=== PATIENT | female | born 1970 | race Hispanic/Latino ===

== ENCOUNTER 2017-12-02 21:10 | Emergency (ER) | payer OTHER ==
[2017-12-02 21:50] LABS: APPEARANCE,URINE Cloudy (CLEAR); BILIRUBIN,URINE Negative (NEGATIVE); COLOR,URINE Yellow (YELLOW); GLUCOSE, URINE (UA) Negative (NEGATIVE); KETONES,URINE Negative (NEGATIVE); LEUKOCYTE ESTERASE ,URINE Small (NEGATIVE); NITRATE,URINE Negative (NEGATIVE); OCCULT BLOOD,URINE Large (NEGATIVE); PROTEIN,URINE Trace (NEGATIVE)
[2017-12-02 21:54] LABS: CREATININE 0.8 mg/dL (0.5-1.5); POTASSIUM 3.9 mmol/L (3.5-5.1)
[2017-12-02 21:56] LABS: BASOPHILS % (AUTO) 0.3 % (0.0-5.0); EOSINOPHILS % (AUTO) 1.8 % (0.0-8.0); HEMATOCRIT 39.3 % (36-48); LYMPHOCYTES % (AUTO) 21.1 % (21.0-51.0); MEAN CORPUSCULAR HEMOGLOBIN 29.1 pg (27.0-33.0); MEAN CORPUSCULAR HGB CONC 34.6 g/dL (32.0-36.0); MONOCYTES % (AUTO) 3.6 % (3.0-13.0); NEUTROPHILS % (AUTO) 73.2 % (40.0-77.0); PLATELET COUNT (AUTO) 342 K/uL (130-400); RED BLOOD CELL COUNT(AUTO) 4.68 MIL/uL (4.00-5.50); RED CELL DISTRIBUTION WIDTH 14.3 % (11.0-15.5)
[2017-12-02 21:58] LABS: ALBUMIN 3.5 g/dL (3.5-5.0); BILIRUBIN,TOTAL 0.4 mg/dL (0.2-1.0); TOTAL PROTEIN, SERUM 7.8 g/dL (6.0-8.3)
[2017-12-02 22:05] LABS: BACTERIA,URINE Moderate /HPF (None Seen); MUCUS,URINE Moderate LPF (None Seen)
[2017-12-02] MEDS ORDERED: ONDANSETRON HCL 4 MG/2 ML VIAL ONE (22:12)
[2017-12-02] MEDS ORDERED: HYOSCYAMINE SULFATE 0.125 MG TAB.SUBL SL ONE (22:12)
[2017-12-02] MEDS ORDERED: MORPHINE SULFATE 2 MG/ML 1ML SYG ONE (22:13)
[2017-12-02] MEDS ORDERED: SUCRALFATE 1 GM TABLET ONE (23:05)
== END 2017-12-02 23:44 | disposition home or self-care (01) ==
LOC: EDH 21:10
DX: K29.00 Acute gastritis without bleeding (principal); M19.90 Unspecified osteoarthritis, unspecified site; E78.5 Hyperlipidemia, unspecified; I10 Essential (primary) hypertension; Z90.49 Acquired absence of other specified parts of digestive tract; Z88.0 Allergy status to penicillin
CPT/HCPCS: 36415; 76705; 80053; 81001; 83690; 85025; 86677; 96374; 96375; 99285; J2405

== ENCOUNTER 2019-04-21 20:46 | Inpatient (IN) | payer OTHER ==
[~2019-04-21] VITALS: Ht 177.8 cm; Wt 105.7 kg
[2019-04-21] MEDS ORDERED: ONDANSETRON HCL 4 MG/2 ML VIAL ONE (22:26)
[2019-04-21] MEDS ORDERED: MORPHINE SULFATE 4 MG/1ML SYG ONE (22:26)
[2019-04-21 22:33] LABS: BASOPHILS % (AUTO) 0.8 % (0.0-5.0); EOSINOPHILS % (AUTO) 1.7 % (0.0-8.0); HEMATOCRIT 41.4 % (36-48); MONOCYTES % (AUTO) 3.2 % (3.0-13.0); NEUTROPHILS % (AUTO) 74.3 % (40.0-77.0); PLATELET COUNT (AUTO) 334 K/uL (130-400); RED BLOOD CELL COUNT(AUTO) 4.87 MIL/uL (4.00-5.50); RED CELL DISTRIBUTION WIDTH 14.2 % (11.0-15.5); WHITE BLOOD COUNT (AUTO) 11.8 K/uL (4.8-10.8)
[2019-04-21 22:44] LABS: CREATININE 0.7 mg/dL (0.5-1.5); POTASSIUM 3.7 mmol/L (3.5-5.1)
[2019-04-21 23:09] LABS: ALBUMIN 3.3 g/dL (3.5-5.0); BILIRUBIN,DIRECT 0.1 mg/dL (0.0-0.3); BILIRUBIN,TOTAL 0.3 mg/dL (0.2-1.0); TOTAL PROTEIN, SERUM 7.1 g/dL (6.0-8.3)
[2019-04-22] MEDS ORDERED: LIDOCAINE HCL 1% 20 ML VIAL ONE (00:08)
[2019-04-22] MEDS ORDERED: VANCOMYCIN 1GM+NS 250ML 500 ML IV ONE (01:16)
[2019-04-22] MEDS ORDERED: ACETAMINOPHEN EXTRA STRENGTH 500 MG TABLET ONE (04:50)
[2019-04-22] MEDS: SODIUM CHLORIDE 0.9% 1000ML 1,000 ML IV SCH ×2 (05:16→18:20)
[2019-04-22] MEDS ORDERED: ACETAMINOPHEN 325 MG TAB PO PRN (05:30)
[2019-04-22] MEDS ORDERED: HYDRALAZINE HCL 20 MG/ML VIAL IV PRN (05:30)
[2019-04-22] MEDS ORDERED: ONDANSETRON HCL 4 MG/2 ML VIAL IV PRN (05:30)
[2019-04-22] MEDS ORDERED: VANCOMYCIN PROTOCOL PER PHARMACY IV PRN (05:30)
[2019-04-22] MEDS ORDERED: SODIUM CHLORIDE 0.9% 1000ML 1,000 ML IV ONE (05:37)
[2019-04-22] MEDS ORDERED: CLINDAMYCIN 300 MG/D5W 50 ML 50 ML IV SCH (05:45)
[2019-04-22] MEDS ORDERED: CLINDAMYCIN 300 MG/D5W 50 ML 50 ML IV ONE (07:14)
[2019-04-22] MEDS: FAMOTIDINE/PF 20 MG/2 ML VIAL IV SCH ×2 (09:00→20:42)
[2019-04-22] MEDS: LEVOFLOXACIN 750 MG/D5W 150 ML 150 ML IV SCH (09:00)
[2019-04-22] MEDS ORDERED: FAMOTIDINE/PF 20 MG/2 ML VIAL IV ONE (10:39)
[2019-04-22] MEDS ORDERED: LEVOFLOXACIN 750 MG/D5W 150 ML 150 ML ONE (10:40)
[2019-04-22] MEDS ORDERED: ONDANSETRON HCL 4 MG/2 ML VIAL ONE (10:51)
[2019-04-22] MEDS ORDERED: MORPHINE SULFATE 2 MG/ML 1ML SYG ONE (10:51)
[2019-04-22 12:00] VITALS: BP 111/64
[2019-04-22] MEDS ORDERED: HYDR12.530 PO ×2 (13:09)
[2019-04-22] MEDS ORDERED: MELO-108 PO (13:09)
[2019-04-22] MEDS ORDERED: ESOM40CA54 PO (13:09)
[2019-04-22] MEDS ORDERED: LOSA50TA64 PO ×2 (13:09)
[2019-04-22] MEDS ORDERED: COMPOUND IV REFRIGERATED 1 EACH IVSOLN MISC PRN (13:15)
[2019-04-22] MEDS: VANCOMYCIN 1.5 GM in SODIUM CHLORIDE 0.9% 250 ML IV SCH (14:12)
--- NOTE | 2019-04-22 15:00 | NUR ---
DR NIRANJAN PAIZ RETURNED CALL AND ORDERERS RECEIVED FOR ultrasound guidance core biopsy / aspiration of left breast by IR, IR procedure request order placed and copy fax to hospitality housekeeper. Patient informed of plan procedures.
[2019-04-22 16:00] VITALS: BP 127/78
[2019-04-22 19:00] VITALS: BP 129/56
[2019-04-22] MEDS: MORPHINE SULFATE 2 MG/ML 1ML SYG IV PRN (20:43)
[2019-04-22 23:00] VITALS: BP 113/53
[2019-04-23] VITALS (13 sets, daily range): BP systolic 92–145; BP diastolic 45–78
[2019-04-23] MEDS: VANCOMYCIN 1.5 GM in SODIUM CHLORIDE 0.9% 250 ML IV SCH ×2 (01:35→15:03)
[2019-04-23] MEDS: SODIUM CHLORIDE 0.9% 1000ML 1,000 ML IV SCH ×2 (05:52→05:53)
[2019-04-23 07:46] LABS: BASOPHILS % (AUTO) 0.6 % (0.0-5.0); EOSINOPHILS % (AUTO) 1.5 % (0.0-8.0); HEMATOCRIT 37.9 % (36-48); LYMPHOCYTES % (AUTO) 14.4 % (21.0-51.0); MEAN CORPUSCULAR HEMOGLOBIN 28.2 pg (27.0-33.0); MEAN CORPUSCULAR HGB CONC 33.4 g/dL (32.0-36.0); MEAN CORPUSCULAR VOLUME 84.4 fL (79-99); MONOCYTES % (AUTO) 3.6 % (3.0-13.0); NEUTROPHILS % (AUTO) 79.9 % (40.0-77.0); PLATELET COUNT (AUTO) 286 K/uL (130-400); RED BLOOD CELL COUNT(AUTO) 4.49 MIL/uL (4.00-5.50); RED CELL DISTRIBUTION WIDTH 14.4 % (11.0-15.5); WHITE BLOOD COUNT (AUTO) 10.2 K/uL (4.8-10.8)
[2019-04-23 07:49] LABS: CREATININE 0.7 mg/dL (0.5-1.5); POTASSIUM 3.9 mmol/L (3.5-5.1)
[2019-04-23] MEDS: LEVOFLOXACIN 750 MG/D5W 150 ML 150 ML IV SCH (08:15)
[2019-04-23] MEDS: FAMOTIDINE/PF 20 MG/2 ML VIAL IV SCH ×2 (08:15→20:24)
--- NOTE | 2019-04-23 09:30 | NUR ---
to rad. dept. now via w/c for bx. lt. breast mass.
--- NOTE | 2019-04-23 10:33 | NUR ---
DCP CM met with pt discussed dc plans. Pt is independent prior to admission, lives at home w/spouse. Denies any equipments/services. Feels safe to go back home, still works and drives, spouse and mother able to assist with transportation and needs as necessary. DC plan to home once stable. CM to cont to follow up. Addendum: 04/23/19 at 1033 by EKATERINA GAMBOA LVN CM Amended: Links added.
--- NOTE | 2019-04-23 10:55 | NUR ---
U/S GD LT BREAST ASPIRATION PROCEDURE PERFORMED BY DR Laura CARRIZALES. PUNCTURE SITE LT BREAST AT 3 O'CLOCK AND PATIENT TOLERATED PROCEDURE WELL. SPECIMEN COLLECTED AND SENT TO LAB. END OF PROCEDURE AT 1040. BIOPSY NEEDLE REMOVED AND DRESSING APPLIED. NO BLEEDING NOTED. REPORT GIVEN TO Rc BEAVERS RN AND PATIENT TRANSPORTED TO [facility] VIA W/C AT 1055. AAO X3 WITH NO C/O PAIN
--- NOTE | 2019-04-23 11:00 | NUR ---
BACK FROM RAD. DEPT. REPORT TAKEN BY CHARGE NURSE, 1.5 ML OF FLUID/PUS ASPIRATED. AREA REMAINS RED AND SL RAISED AND HARD. C/O OF SEVERE PAIN TO SITE.
[2019-04-23] MEDS: MORPHINE SULFATE 2 MG/ML 1ML SYG IV PRN (11:06)
--- NOTE | 2019-04-23 11:30 | NUR ---
NEW IV START,20G TO RT. HAND. NS INFUSING AT 100ML HR.
[2019-04-23] MEDS: ACETAMINOPHEN 325 MG TAB PO PRN (20:25)
[2019-04-24] VITALS (21 sets, daily range): BP systolic 106–154; BP diastolic 60–87
[2019-04-24] MEDS: VANCOMYCIN 1.5 GM in SODIUM CHLORIDE 0.9% 250 ML IV SCH ×2 (01:42→12:45)
[2019-04-24] MEDS: SODIUM CHLORIDE 0.9% 1000ML 1,000 ML IV SCH ×3 (01:43→16:46)
[2019-04-24] MEDS: ACETAMINOPHEN 325 MG TAB PO PRN ×2 (01:55→20:01)
[2019-04-24 05:07] LABS: BASOPHILS % (AUTO) 0.2 % (0.0-5.0); EOSINOPHILS % (AUTO) 1.6 % (0.0-8.0); HEMATOCRIT 37.1 % (36-48); LYMPHOCYTES % (AUTO) 13.2 % (21.0-51.0); MEAN CORPUSCULAR HEMOGLOBIN 28.7 pg (27.0-33.0); MEAN CORPUSCULAR HGB CONC 33.4 g/dL (32.0-36.0); MEAN CORPUSCULAR VOLUME 85.8 fL (79-99); MONOCYTES % (AUTO) 3.7 % (3.0-13.0); NEUTROPHILS % (AUTO) 81.3 % (40.0-77.0); PLATELET COUNT (AUTO) 269 K/uL (130-400); RED BLOOD CELL COUNT(AUTO) 4.32 MIL/uL (4.00-5.50); RED CELL DISTRIBUTION WIDTH 14.4 % (11.0-15.5); WHITE BLOOD COUNT (AUTO) 8.2 K/uL (4.8-10.8)
[2019-04-24 05:37] LABS: HEMOGLOBIN A1C 5.5 % (4.0-6.0)
[2019-04-24 05:44] LABS: ALBUMIN 2.8 g/dL (3.5-5.0); BILIRUBIN,TOTAL 0.5 mg/dL (0.2-1.0); CREATININE 0.8 mg/dL (0.5-1.5); TOTAL PROTEIN, SERUM 6.6 g/dL (6.0-8.3)
[2019-04-24] MEDS ORDERED: LACTATED RINGERS 1000ML 1,000 ML IV ONE (08:37)
[2019-04-24] MEDS ORDERED: DEXAMETHASONE SOD PHOSPHATE 10MG/ML 1ML VIAL ONE (09:34)
[2019-04-24] MEDS ORDERED: LIDOCAINE PF 2% 5ML ABBOJECT ONE (09:34)
[2019-04-24] MEDS ORDERED: SUCCINYLCHOLINE 200MG/10ML SYR ONE (09:34)
[2019-04-24] MEDS ORDERED: MIDAZOLAM HCL 1 MG/ML 2ML VIAL ONE (09:34)
[2019-04-24] MEDS ORDERED: ONDANSETRON HCL 4 MG/2 ML VIAL ONE (09:34)
[2019-04-24] MEDS ORDERED: FENTANYL CITRATE PF 50 MCG/1 ML 2ML VIAL ONE (09:35)
[2019-04-24] MEDS ORDERED: ROCURONIUM 10MG/1ML SYR 10 MG/ML ML ONE (09:35)
[2019-04-24] MEDS ORDERED: GLYCOPYRROLATE 1 MG/5 ML SYRINGE ONE (09:35)
[2019-04-24] MEDS ORDERED: PROPOFOL 10 MG/ML 20ML VIAL IV ONE ×2 (09:35→10:08)
[2019-04-24] MEDS ORDERED: MEPERIDINE-PF 25 MG/ML SYG ONE ×2 (10:33→10:46)
[2019-04-24] MEDS ORDERED: KETOROLAC TROMETHAMINE 30MG/ML ONE (10:33)
[2019-04-24] MEDS: MORPHINE SULFATE 2 MG/ML 1ML SYG IV PRN (12:39)
[2019-04-24] MEDS: LEVOFLOXACIN 750 MG/D5W 150 ML 150 ML IV SCH (12:45)
[2019-04-24] MEDS: FAMOTIDINE/PF 20 MG/2 ML VIAL IV SCH ×2 (12:48→20:00)
[2019-04-24] MEDS ORDERED: KETOROLAC TROMETHAMINE 30MG/ML IM PRN (16:45)
[2019-04-25 00:25] VITALS: BP 128/68
[2019-04-25] MEDS: VANCOMYCIN 1.5 GM in SODIUM CHLORIDE 0.9% 250 ML IV SCH ×2 (00:26→12:50)
[2019-04-25] MEDS: MORPHINE SULFATE 2 MG/ML 1ML SYG IV PRN (00:26)
[2019-04-25 04:30] VITALS: BP 116/61
[2019-04-25] MEDS: SODIUM CHLORIDE 0.9% 1000ML 1,000 ML IV SCH ×2 (04:32→12:51)
[2019-04-25 05:23] LABS: BASOPHILS % (AUTO) 0.2 % (0.0-5.0); EOSINOPHILS % (AUTO) 3.3 % (0.0-8.0); HEMATOCRIT 35.3 % (36-48); LYMPHOCYTES % (AUTO) 19.6 % (21.0-51.0); MEAN CORPUSCULAR HEMOGLOBIN 28.3 pg (27.0-33.0); MEAN CORPUSCULAR HGB CONC 33.1 g/dL (32.0-36.0); MEAN CORPUSCULAR VOLUME 85.5 fL (79-99); MONOCYTES % (AUTO) 5.3 % (3.0-13.0); NEUTROPHILS % (AUTO) 71.6 % (40.0-77.0); PLATELET COUNT (AUTO) 296 K/uL (130-400); RED BLOOD CELL COUNT(AUTO) 4.13 MIL/uL (4.00-5.50); RED CELL DISTRIBUTION WIDTH 14.4 % (11.0-15.5); WHITE BLOOD COUNT (AUTO) 6.6 K/uL (4.8-10.8)
[2019-04-25 05:43] LABS: ALBUMIN 2.5 g/dL (3.5-5.0); BILIRUBIN,TOTAL 0.3 mg/dL (0.2-1.0); CREATININE 0.7 mg/dL (0.5-1.5); POTASSIUM 3.9 mmol/L (3.5-5.1); TOTAL PROTEIN, SERUM 6.3 g/dL (6.0-8.3)
[2019-04-25 08:00] VITALS: BP 136/68
[2019-04-25] MEDS: LEVOFLOXACIN 750 MG/D5W 150 ML 150 ML IV SCH (10:16)
[2019-04-25] MEDS: FAMOTIDINE/PF 20 MG/2 ML VIAL IV SCH (10:16)
[2019-04-25 12:00] VITALS: BP 157/83
[2019-04-25] MEDS ORDERED: BENZ-17 PO ×2 (12:05)
[2019-04-25] MEDS ORDERED: KETO10 PO ×2 (12:05)
[2019-04-25] MEDS ORDERED: CEPH-578 PO ×2 (12:05)
[2019-04-25] MEDS ORDERED: KETOROLAC TROMETHAMINE 30MG/ML IV PRN (16:45)
[2019-04-29] MEDS ORDERED: MICO44CM VG (12:03)
== END 2019-04-25 18:05 | disposition home or self-care (01) | DRG 854 ==
LOC: EDH 20:46 → EDHIP 04-22 05:16 → OBSVTOIN 04-22 05:16 → 3DH 04-22 12:22
PROVIDERS: ADMIT Internal Medicine; ATTEND Internal Medicine
PROC: 0H9U3ZX Drainage of Left Breast, Percutaneous Approach, Diagnostic (ICD-10-PCS; 2019-04-23)
PROC: 0HBU0ZZ Excision of Left Breast, Open Approach (ICD-10-PCS; principal; 2019-04-24 09:40)
DX: A41.9 Sepsis, unspecified organism (principal); E44.1 Mild protein-calorie malnutrition; N61.1 Abscess of the breast and nipple; E66.01 Morbid (severe) obesity due to excess calories; E78.5 Hyperlipidemia, unspecified; I10 Essential (primary) hypertension; L72.3 Sebaceous cyst; M19.90 Unspecified osteoarthritis, unspecified site; N61.0 Mastitis without abscess; Z88.0 Allergy status to penicillin; Z90.49 Acquired absence of other specified parts of digestive tract; Z68.33 Body mass index [BMI] 33.0-33.9, adult
CPT/HCPCS: 19000; 36415; 76882; 80048; 80053; 80076; 80202; 83036; 84145; 85025; 87070; 87076; 87077; 87186; 88108; 88305; A6266; G0378; J0330; J1100; J1885; J1956; J2001; J2175; J2250; J2270; J2405; J2704; J3010; J3370; J3490; J7030; J7120

== ENCOUNTER → 2019-04-27 | Outpatient (CLI) | payer OTHER ==
[~2019-04-27] MED LIST: BENZ-17 PO; CEPH-578 PO; HYDR12.530 PO; KETO10 PO; LIDOCAINE/PRILOCAINE CREAM 5GM TUBE TP ONE; LOSA50TA64 PO; MICO44CM VG
[2019-04-27 15:07] VITALS: BP 160/89
== END | disposition home or self-care (01) ==
LOC: WHH 09:00
PROVIDERS: ATTEND Surgery
DX: T81.89XA Other complications of procedures, not elsewhere classified, initial encounter (principal); I10 Essential (primary) hypertension; E78.5 Hyperlipidemia, unspecified; Z90.49 Acquired absence of other specified parts of digestive tract; Y83.8 Other surgical procedures as the cause of abnormal reaction of the patient, or of later complication, without mention of misadventure at the time of the procedure; Y92.89 Other specified places as the place of occurrence of the external cause
CPT/HCPCS: 11042; A6021; A6212; J3490

== ENCOUNTER → 2019-05-10 | Outpatient (CLI) | payer OTHER ==
[~2019-05-10] MED LIST changes: -BENZ-17 PO; -CEPH-578 PO
[2019-05-10 13:35] VITALS: BP 143/86
== END | disposition home or self-care (01) ==
LOC: WHH 10:00
PROVIDERS: ATTEND Surgery
DX: T81.89XD Other complications of procedures, not elsewhere classified, subsequent encounter (principal); E11.9 Type 2 diabetes mellitus without complications; I10 Essential (primary) hypertension; E78.5 Hyperlipidemia, unspecified; E66.01 Morbid (severe) obesity due to excess calories; M19.90 Unspecified osteoarthritis, unspecified site; Z90.49 Acquired absence of other specified parts of digestive tract; Z88.0 Allergy status to penicillin; Y83.8 Other surgical procedures as the cause of abnormal reaction of the patient, or of later complication, without mention of misadventure at the time of the procedure
CPT/HCPCS: 11042; A6021; A6212; J3490; 97597

== ENCOUNTER → 2019-05-18 | Outpatient (CLI) | payer OTHER ==
[2019-05-18 11:27] VITALS: BP 139/71
== END | disposition home or self-care (01) ==
LOC: WHH 08:30
PROVIDERS: ATTEND Surgery
DX: T81.89XD Other complications of procedures, not elsewhere classified, subsequent encounter (principal); E11.9 Type 2 diabetes mellitus without complications; I10 Essential (primary) hypertension; E78.5 Hyperlipidemia, unspecified; E66.01 Morbid (severe) obesity due to excess calories; M19.90 Unspecified osteoarthritis, unspecified site; Z90.49 Acquired absence of other specified parts of digestive tract; Z88.0 Allergy status to penicillin; Y83.8 Other surgical procedures as the cause of abnormal reaction of the patient, or of later complication, without mention of misadventure at the time of the procedure
CPT/HCPCS: 11042; A6021; A6212; J3490; 99214

== ENCOUNTER → 2019-05-24 | Outpatient (CLI) | payer OTHER ==
[2019-05-24 14:45] VITALS: BP 152/82
== END | disposition home or self-care (01) ==
LOC: WHH 11:40
PROVIDERS: ATTEND Surgery
DX: T81.89XD Other complications of procedures, not elsewhere classified, subsequent encounter (principal); E11.9 Type 2 diabetes mellitus without complications; I10 Essential (primary) hypertension; E78.5 Hyperlipidemia, unspecified; E66.01 Morbid (severe) obesity due to excess calories; M19.90 Unspecified osteoarthritis, unspecified site; Z90.49 Acquired absence of other specified parts of digestive tract; Z88.0 Allergy status to penicillin; Y83.8 Other surgical procedures as the cause of abnormal reaction of the patient, or of later complication, without mention of misadventure at the time of the procedure
CPT/HCPCS: 99214; A6021; A6212; J3490

== ENCOUNTER 2020-03-28 17:09 | Emergency (ER) | payer OTHER ==
[~2020-03-28 17:09] MED LIST changes: -LIDOCAINE/PRILOCAINE CREAM 5GM TUBE TP ONE
[2020-03-28] MEDS ORDERED: ASPIRIN 325 MG TABLET ONE (17:48)
[2020-03-28 18:02] LABS: BASOPHILS % (AUTO) 0.2 % (0.0-5.0); EOSINOPHILS % (AUTO) 1.7 % (0.0-8.0); HEMATOCRIT 43.2 % (36-48); LYMPHOCYTES % (AUTO) 19.1 % (21.0-51.0); MEAN CORPUSCULAR HEMOGLOBIN 27.8 pg (27.0-33.0); MEAN CORPUSCULAR HGB CONC 32.9 g/dL (32.0-36.0); MEAN CORPUSCULAR VOLUME 84.7 fL (79-99); MONOCYTES % (AUTO) 3.9 % (3.0-13.0); NEUTROPHILS % (AUTO) 74.8 % (40.0-77.0); PLATELET COUNT (AUTO) 315 K/uL (130-400); RED CELL DISTRIBUTION WIDTH 13.6 % (11.0-15.5); WHITE BLOOD COUNT (AUTO) 10.9 K/uL (4.8-10.8)
[2020-03-28 18:15] LABS: CREATININE 0.9 mg/dL (0.5-1.5); POTASSIUM 3.8 mmol/L (3.5-5.1)
[2020-03-28 18:18] LABS: INR 0.92 (0.85-1.15); PARTIAL THROMBOPLASTIN TIME 28.2 SEC (26.3-35.5)
[2020-03-28 18:20] LABS: ALBUMIN 3.7 g/dL (3.5-5.0); BILIRUBIN,TOTAL 0.3 mg/dL (0.2-1.0); TOTAL PROTEIN, SERUM 8.1 g/dL (6.0-8.3)
[2020-03-28] MEDS ORDERED: ONDANSETRON HCL 4 MG/2 ML VIAL ONE (18:25)
== END 2020-03-28 21:10 | disposition home or self-care (01) ==
LOC: EDH 17:09
DX: R07.89 Other chest pain (principal); M19.90 Unspecified osteoarthritis, unspecified site; E78.5 Hyperlipidemia, unspecified; I10 Essential (primary) hypertension; Z88.0 Allergy status to penicillin; Z90.49 Acquired absence of other specified parts of digestive tract
CPT/HCPCS: 36415; 71045; 80053; 81025; 82550; 84484 ×2; 85025; 85610; 85730; 93005 ×2; 96374; 99285; J2405

== ENCOUNTER 2022-04-22 20:31 | Emergency (ER) | payer BC ==
[~2022-04-22] VITALS: Ht 152.4 cm; Wt 10.0 kg
[~2022-04-22 20:31] MED LIST changes: +CYCL-309 PO; +DICY20TA2 PO; +METO-296 PO; +ONDA4TAB10 PO
[2022-04-22 22:08] VITALS: BP 143/74
== END 2022-04-22 22:09 | disposition home or self-care (01) ==
LOC: EDH 20:31
DX: I10 Essential (primary) hypertension (principal); K21.9 Gastro-esophageal reflux disease without esophagitis; E78.00 Pure hypercholesterolemia, unspecified; M19.90 Unspecified osteoarthritis, unspecified site; F41.9 Anxiety disorder, unspecified; F32.A Depression, unspecified; Z88.0 Allergy status to penicillin; Z79.899 Other long term (current) drug therapy; Z90.89 Acquired absence of other organs